=== PATIENT | male | born 1980 ===

== ENCOUNTER 2021-08-27 12:33 | Outpatient (REF) | payer OTHER, SELFPAY ==
[2021-08-27 13:06] LABS: Binax Internal Control QC Valid; Binax Now Covid-19 Ag Positive (Negative)
== END 2021-08-27 12:34 | disposition home or self-care (01) ==
LOC: HO.LAB 12:33
PROVIDERS: Visit Provider Internal Medicine
DX: Z13.89 Encounter for screening for other disorder (principal)

== ENCOUNTER 2021-10-25 16:54 | Outpatient (REF) | payer OTHER, SELFPAY ==
[2021-10-25 17:04] LABS: MANUAL DIFF FLAG NO
[2021-10-25 17:53] LABS: Basophils Percent Auto 0.4 % (0-2); Eosinophils Absolute Auto 0.2 X10*3/uL (0.0-0.4); Eosinophils Percent Auto 2.4 % (0-4); Hemoglobin 15.2 g/dl (14.0-18.0); Imm Gran Abs Auto 0.02 X10*3/uL (0.00-0.03); Imm Gran Pct Auto 0.2 % (0.0-0.4); Lymphocytes Absolute Auto 2.4 X10*3/uL (1.2-4.9); Lymphocytes Percent Auto 26.3 % (20-40); Mean Corpuscular Hemoglobin 32.1 pg (27.0-33.0); Mean Corpuscular Volume 97.3 fL (80.0-98.0); Mean Platelet Volume 10.2 fL (9.4-12.4); Monocytes Absolute Auto 0.8 X10*3/uL (0.1-1.2); Monocytes Percent Auto 8.9 % (2-11); Neutrophils Absolute Auto 5.6 x10*3/uL (2.0-8.3); Neutrophils Percent Auto 61.8 % (45-73); Platelet Count 281 X10*3/uL (160-400); Red Blood Count 4.73 X10*6/uL (4.60-5.80); Red Cell Distribution Width 13.8 % (11.0-16.0)
[2021-10-25 18:18] LABS: Alanine Aminotransferase 28 U/L (0-40); Albumin Level 4.4 g/dL (3.5-5.0); Alkaline Phosphatase 85 U/L (39-117); Anion Gap 10 (12-20); Aspartate Amino Transferase 30 U/L (5-37); Bilirubin Total 0.5 mg/dL (0.0-1.0); Blood Urea Nitrogen 12 mg/dL (9-16); Carbon Dioxide 30 mmol/L (22-29); Chloride 107 mmol/L (96-108); Cholesterol 205 mg/dL; Estimated Glomerular Filt Rate > 60; Glucose Fasting 74 mg/dL (60-99); HDL Cholesterol 59 mg/dL; LDL Cholesterol Calculated 115 mg/dl; Potassium 4.3 mmol/L (3.3-5.1); Sodium 143 mmol/L (135-145); Total Protein 7.4 g/dL (6.5-8.0); Triglycerides 157 mg/dL
== END 2021-10-25 16:55 | disposition home or self-care (01) ==
LOC: HO.LAB 16:54
PROVIDERS: PCP Internal Medicine Medical Oncology; Visit Provider Internal Medicine Medical Oncology
DX: Z00.00 Encounter for general adult medical examination without abnormal findings (principal); E66.3 Overweight
CPT/HCPCS: 36415; 80053; 80061; 85025

== ENCOUNTER 2021-12-16 12:39 | Emergency (ER) | payer OTHER, SELFPAY ==
--- NOTE | ~2021-12-16 | XR_ITS ---
EXAMINATION: XR KNEE, RIGHT CLINICAL INFORMATION: Right knee pain and swelling COMPARISON: None TECHNIQUE: Four views of the right knee. FINDINGS: Normal alignment with no fracture. No significant joint space narrowing. There is a moderate joint effusion. No radiopaque foreign body. XR/XR knee RT 3V IMPRESSION: Moderate joint effusion. No fracture.
[2021-12-16 13:01] VITALS: BP 106/72; PULSE 95; RESP 16; TEMP 36.8; O2SAT 99; BMI 25.6
[2021-12-16] MEDS: Ketorolac Tromethamine 60 MG/2 ML VIAL IM (13:34)
--- NOTE | 2021-12-16 13:58 | ED.LOWEXIN ---
HPI - Extremity Injury (Lower) General Chief Complaint: Extremity Injury, Lower Stated Complaint: r leg knee swollen fell Time Seen by Provider: 12/16/21 13:25 Source: patient and family Mode of arrival: wheelchair Limitations: no limitations History of Present Illness HPI Narrative: 41-year-old male previously healthy here with reports of right knee pain after twisting injury which occurred yesterday while working. Patient denies any fall to the ground. Patient denies any associated numbness, tingling, weakness, redness, warmth or fever. Patient does report that he has previous twitching injury to this knee before Related Data Previous Rx's Medication Instructions Recorded ibuprofen 600 mg tablet 600 mg PO Q8H PRN #20 tab 12/16/21 Allergies Allergy/AdvReac Type Severity Reaction Status Date / Time No Known Allergies Allergy Verified 12/16/21 13:05 Review of Systems Review of Systems: Yes all other systems are reviewed and are negative Constitutional: Constitutional: Reports no additional constitutional complaints, Denies body ache(s), Denies chills, Denies fever(s), Denies headache(s) and Denies weakness Eyes: Eyes: Reports no additional eye complaints and Denies change in vision ENT: Reports system reviewed and no additional complaints, except as documented, Denies dizziness, Denies headache(s), Denies nasal congestion, Denies nasal discharge and Denies neck pain Cardiovascular: Cardiovascular: Reports no additional cardiovascular complaints, Denies chest pain, Denies leg edema and Denies dyspnea Respiratory: Respiratory: Reports no additional respiratory complaints, Denies cough and Denies dyspnea Gastrointestinal: Gastrointestinal: Reports no additional gastrointestinal complaints, Denies abdominal pain, Denies diarrhea, Denies nausea and Denies vomiting Genitourinary: Genitourinary: Denies urinary incontinence Musculoskeletal: Musculoskeletal: Reports no additional musculoskeletal complaints, Denies back pain, Reports arthralgias, Reports joint swelling, Denies neck pain, Denies numbness and Denies tingling Integumentary/Breasts: Skin/Breast: Reports system reviewed and no additional complaints, except as docu and Denies rash Neurologic: Reports system reviewed and no additional complaints, except as documented, Denies Abnormal speech present, Denies dizziness, Denies headache(s), Denies numbness, Denies tingling and Denies weakness [facility] Past Medical History Attestation statement: The following information was validated with the patient. Source: old records reviewed and nursing notes reviewed Social History Social History Advance Directives: No Advance Directives Information Provided: No Physical Exam Vital Signs: Vital Signs: Last Vital Signs Temp 98.2 F 12/16/21 13:01 Pulse 95 12/16/21 13:01 Resp 16 12/16/21 13:01 BP 106/72 12/16/21 13:01 Pulse Ox 99 12/16/21 13:01 BMI result Body Mass Index 25.6 Const: General: cooperative, healthy appearing, comfortable and no acute distress Orientation/consciousness: patient oriented x3 Limitations: no limitations HEENT: Head: Yes normal to inspection Ears: hearing grossly normal bilaterally General nose exam: Normal external nose present Face and sinus: Yes normal facial exam Mouth: Normal oral and palatal mucosa present Throat: Yes posterior oropharynx normal Eyes: General: appearance normal, both eyes and all related structures Pupils: Equal, round and reactive pupils present Neck: Neck: Yes normal visual inspection Chest: Chest palpation & inspection: normal inspection of the chest Resp: Effort & Inspection: normal respiratory effort Auscultation: clear to auscultation bilaterally Cardio: Rate: regular rate Rhythm: regular rhythm Peripheral pulses: Peripheral pulses 2+ throughout GI: Inspection: Yes normal to inspection Palpation (GI): Soft to palpation and nontender Auscultation: normal bowel sounds Back/Spine/Pelvis: Thoracic/Lumbar Spine: thoracic and lumbar spine normal to inspection Skin: General skin exam: no rashes or lesions noted Neuro: General: patient oriented x3, no focal motor deficits and normal sensation to monofilament Cranial nerves: Yes Equal, round and reactive pupils present Cognition (Neuro): normal cognition Speech: No Abnormal speech present Gait exam (Neuro): Normal gait present Motor exam (neuro): 5/5 motor strength present throughout Extrem: Other: There is tenderness, swelling to the medial aspect of the right knee over the joint line and medial ligament. There is limited range of motion due to pain and swelling. General: Yes normal to inspection Course Course Course Narrative: 41-year-old male here with right knee pain after a twisting injury which occurred yesterday. Will check x-rays, provide analgesia Reevaluation(s) Reevaluation #1: X-ray show no bony abnormality. There is a moderate joint effusion. Likely sprain of the medial ligament. Patient will be placed in knee immobilizer and given crutches. Follow-up with orthopedics in 1 week for persistent symptoms. Reviewed rice. Reviewed worrisome signs and symptoms of when to return to the emergency department. Comfortable discharge home. Time: 14:30 MDM - Extremity Injury (Lower) MDM Narrative Medical decision making narrative: Sprain, contusion, fracture Medical Records Attestation: I reviewed the patient's medical records. Lab Data Attestation: I reviewed the patient's lab results. Imaging Data knee xray: Attestation: I personally reviewed and interpreted this imaging study as follows: Radiologist's impression: [address] [address] XRay Report Signed Patient: Sloan Kirkpatrick MR#: [id number] : 1980 Acct:[id number] Age/Sex: 41 / M ADM Date: 12/16/21 Loc: .ED Attending Dr: Ordering Physician: Kate Padgett DO Date of Service: 12/16/21 Procedure(s): XR knee RT 3V Accession Number(s): [id number] cc: Kate Padgett DO~ EXAMINATION: XR KNEE, RIGHT? CLINICAL INFORMATION: Right knee pain and swelling? COMPARISON: None? TECHNIQUE: Four views of the right knee. FINDINGS: Normal alignment with no fracture. No significant joint space narrowing. There is a moderate joint effusion. No radiopaque foreign body.? XR/XR knee RT 3V IMPRESSION: Moderate joint effusion. No fracture. Procedures Procedure Narrative Procedure Narrative: Knee immobilizer and crutches Discharge Plan Discharge Clinical Impression: Right knee sprain Patient Disposition: Home, Self-Care Instructions: Knee Sprain (DC) Additional Instructions: Rest, ice Use the knee immobilizer and crutches and limit weight-bearing for few days Follow-up with orthopedics in 7 days for persistent symptoms Prescriptions: New ibuprofen 600 mg tablet 600 mg PO Q8H PRN (Reason: pain) Qty: 20 0RF [place] [facility] [place] [facility] [place] [facility] [facility] [place] Group] - 1 week (for persistent symptoms )
== END 2021-12-16 14:27 | disposition home or self-care (01) ==
PROVIDERS: Emergency Provider Emergency Medicine; PCP Internal Medicine Medical Oncology
DX: M25.561 Pain in right knee (principal); R60.0 Localized edema
CPT/HCPCS: 73562; 96372; 99283; 99284; J1885

== ENCOUNTER 2022-02-07 12:29 | Outpatient (REF) | payer OTHER, SELFPAY | END 2022-02-07 12:30 | disposition home or self-care (01) | LOC: HO.HOSX 12:29 | PROVIDERS: Visit Provider Physician Assistant | DX: Z13.89 Encounter for screening for other disorder (principal) ==

== ENCOUNTER 2022-10-28 09:53 | Outpatient (REF) | payer OTHER, SELFPAY ==
[2022-10-28 10:04] LABS: MANUAL DIFF FLAG NO
[2022-10-28 10:29] LABS: Basophils Absolute Auto 0.1 X10*3/uL (0.0-0.2); Basophils Percent Auto 0.6 % (0-2); Eosinophils Absolute Auto 0.3 X10*3/uL (0.0-0.4); Eosinophils Percent Auto 3.3 % (0-4); Hematocrit 42.3 % (42.0-52.0); Imm Gran Abs Auto 0.03 X10*3/uL (0.00-0.03); Imm Gran Pct Auto 0.3 % (0.0-0.4); Lymphocytes Absolute Auto 2.7 X10*3/uL (1.2-4.9); Lymphocytes Percent Auto 31.1 % (20-40); Mean Corpuscular HGB Conc 33.1 g/dl (31.0-36.0); Mean Corpuscular Volume 93.8 fL (80.0-98.0); Mean Platelet Volume 9.8 fL (9.4-12.4); Monocytes Percent Auto 11.5 % (2-11); Neutrophils Absolute Auto 4.6 x10*3/uL (2.0-8.3); Neutrophils Percent Auto 53.2 % (45-73); Platelet Count 260 X10*3/uL (160-400); Red Blood Count 4.51 X10*6/uL (4.60-5.80); Red Cell Distribution Width 13.7 % (11.0-16.0); White Blood Count 8.7 X10*3/uL (4.8-10.8)
[2022-10-28 11:01] LABS: Alanine Aminotransferase 23 U/L (0-40); Alkaline Phosphatase 82 U/L (39-117); Anion Gap 10 (12-20); Aspartate Amino Transferase 25 U/L (5-37); Blood Urea Nitrogen 11 mg/dL (9-16); Calcium 9.2 mg/dL (8.4-10.2); Carbon Dioxide 30 mmol/L (22-29); Chloride 104 mmol/L (96-108); Cholesterol 186 mg/dL; Estimated Glomerular Filt Rate > 60; Glucose Fasting 89 mg/dL (60-99); HDL Cholesterol 44 mg/dL; LDL Cholesterol Calculated 116 mg/dl; Potassium 4.1 mmol/L (3.3-5.1); Sodium 140 mmol/L (135-145); Total Protein 6.4 g/dL (6.5-8.0); Triglycerides 133 mg/dL
[2022-10-28 11:16] LABS: Prostate Specific Antigen 0.25 ng/mL (<0.05-4.0)
== END 2022-10-28 09:54 | disposition home or self-care (01) ==
LOC: HO.LAB 09:53
PROVIDERS: PCP Internal Medicine Medical Oncology; Visit Provider Internal Medicine Medical Oncology
DX: Z13.89 Encounter for screening for other disorder (principal)
CPT/HCPCS: 36415; 80053; 80061; 84153; 85025

== ENCOUNTER 2023-07-11 14:32 | Outpatient (REF) | payer OTHER, SELFPAY ==
--- NOTE | ~2023-07-11 | XR_ITS ---
EXAMINATION: XR CHEST CLINICAL INFORMATION: Cough and chest pain COMPARISON: None available. TECHNIQUE: 2 views of the chest were obtained. FINDINGS: No significant abnormality is noted involving the heart, lungs, mediastinum, bony thorax or soft tissues. XR/XR chest 2V IMPRESSION: Unremarkable examination.
== END 2023-07-11 14:33 | disposition home or self-care (01) ==
LOC: HO.XRAY 14:32
PROVIDERS: Visit Provider Internal Medicine Medical Oncology
DX: R07.9 Chest pain, unspecified (principal); R05.9 Cough, unspecified
CPT/HCPCS: 71046

== ENCOUNTER 2023-08-18 16:59 | Emergency (ER) | payer OTHER, SELFPAY ==
--- NOTE | ~2023-08-18 | XR_ITS ---
Examination: Left elbow and left tibia and fibula. Clinical indications: Vaginal bite. COMPARISON: None. TECHNIQUE: Left tibia and fibula 2 views. Left elbow 3 views. FINDINGS: LEFT TIBIA AND FIBULA: There is soft tissue gas in medial and lateral proximal end mid lower leg from animal bite. There is no ulceration, radiopaque foreign body seen. No bony fracture.. LEFT ELBOW: No acute fracture, dislocation or subluxation. No soft tissue abnormality. No joint effusion. XR/XR elbow LT min 3V IMPRESSION: Dispersed soft tissue gas along lateral and medial proximal and mid lower leg. No radiopaque foreign body or bony abnormality seen.
--- NOTE | ~2023-08-18 | XR_ITS ---
Examination: Left elbow and left tibia and fibula. Clinical indications: Vaginal bite. COMPARISON: None. TECHNIQUE: Left tibia and fibula 2 views. Left elbow 3 views. FINDINGS: LEFT TIBIA AND FIBULA: There is soft tissue gas in medial and lateral proximal end mid lower leg from animal bite. There is no ulceration, radiopaque foreign body seen. No bony fracture.. LEFT ELBOW: No acute fracture, dislocation or subluxation. No soft tissue abnormality. No joint effusion. XR/XR tibia fibula LT 2V IMPRESSION: Dispersed soft tissue gas along lateral and medial proximal and mid lower leg. No radiopaque foreign body or bony abnormality seen.
[2023-08-18 17:31] VITALS: BP 123/73; PULSE 85; RESP 18; TEMP 36.8; O2SAT 98; BMI 21.9
--- NOTE | 2023-08-18 17:42 | ED.ANIMALBIT ---
HPI - Animal Bite General Chief Complaint: Animal Bite Stated Complaint: Dog bite to L leg Time Seen by Provider: 08/18/23 17:35 Source: patient, RN notes reviewed and old records reviewed Mode of arrival: wheelchair History of Present Illness HPI narrative: 43-year-old male with no significant past medical history presenting to the ED complaining of abrasions to left elbow and lacerations to left lower leg s/p being attacked by a Pitbull while walking in [place] 2 hours [employer]. Unknown dog or vaccinations status. Patient's last tetanus is unknown. Admits fell to ground, denies head trauma or LOC. Denies taking anticoagulation. Denies chest pain, abdominal pain, fever MD complaint: animal bite Onset (ago): hour(s) Related Data Previous Rx's Medication Instructions Recorded ibuprofen 600 mg tablet 600 mg PO Q8H PRN pain #20 tabs 12/16/21 acetaminophen 500 mg tablet 500 mg PO Q6H PRN fever or pain 08/18/23 (Tylenol Extra Strength) #14 tabs amoxicillin 875 mg-potassium 1 tab PO BID 7 days #14 tabs 08/18/23 clavulanate 125 mg tablet ibuprofen 600 mg tablet 600 mg PO Q8H PRN fever or pain 08/18/23 #14 tabs Allergies Allergy/AdvReac Type Severity Reaction Status Date / Time No Known Allergies Allergy Verified 08/18/23 17:34 Review of Systems Review of Systems: Constitutional: No Fever, No Chills ENT/Mouth: No Ear Pain, No Nasal Congestion, No sore throat, No Rhinorrhea, No Swallowing Difficulty Cardiovascular: No Chest Pain, No SOB Respiratory: No Cough, No Sputum, No Wheezing Gastrointestinal: No Nausea, No Abdominal pain Genitourinary: No Dysuria, No Urinary Frequency, No Hematuria, No Flank Pain Musculoskeletal: + joint pain, No Myalgias, + Joint Swelling Skin: + Skin Lesions, No rash Neuro: No Weakness, No Numbness, No Paresthesias, No head trauma, No LOC Yes all other systems are reviewed and are negative Constitutional: Constitutional: Reports as per [facility] Past Medical History Attestation statement: The following information was validated with the patient. Source: old records reviewed Onset Date is defined in the Problem List Problems that require an onset date and time if occurred within 24 hrs of arrival to the ED Aortic Dissection and Rupture; Neurologic impairment; Cardiopulmonary Arrest; Endotracheal Intubation; Insertion or Replacement of Mechanical Circulatory Assist Device Social History Social History Advance Directives: No Advance Directives Information Provided: No Physical Exam ED Vital Signs: Vital Signs - 24 hr 08/18/23 17:31 Temperature 98.2 F Pulse Rate 85 Respiratory Rate 18 Blood Pressure 123/73 Pulse Oximetry 98 Oxygen Delivery Method Room Air BMI result Body Mass Index 21.9 Const General: cooperative, healthy appearing and no acute distress Orientation/consciousness: patient oriented x3 Limitations: no limitations HENMT Head: Yes normal to inspection and Yes atraumatic Ears: hearing grossly normal bilaterally General nose exam: Normal external nose present Face and sinus: Yes normal facial exam Eyes General: appearance normal, both eyes and all related structures EOM: EOMs intact bilaterally Neck Neck: Yes normal visual inspection and Yes no meningeal signs Resp Effort & Inspection: normal respiratory effort and no respiratory distress Cardio Rate: regular rate Skin Other: Please refer to images above. Left elbow with noted superficial abrasions/erythema. Nontender. Full range of motion intact. Left lower extremity with multiple lacerations as depicted, largest to anterior almendarez, smaller laceration just distal & medial Knee nontender. Ecchymosis noted to left tib/fib. Neurovascular intact distally Rashes: no rashes Neuro General: patient oriented x3, tone normal and no meningeal signs Cranial nerves: Yes CN's II-XII intact bilaterally Gait exam (Neuro): Normal gait present Extrem General: Yes normal to inspection Course Course Course Narrative: -Closely approximated bite wounds with a total of 7 sutures -1850--ED care transferred to SABIHA Chang pending XR results and dispo Reevaluation(s) Reevaluation #1: X-ray obtained and revealed FINDINGS: LEFT TIBIA AND FIBULA: There is soft tissue gas in medial and lateral proximal end mid lower leg from animal bite. There is no ulceration, radiopaque foreign body seen. No bony fracture.. LEFT ELBOW: No acute fracture, dislocation or subluxation. No soft tissue abnormality. No joint effusion. XR/XR tibia fibula LT 2V IMPRESSION: Dispersed soft tissue gas along lateral and medial proximal and mid lower leg. No radiopaque foreign body or bony abnormality seen. This is most likely related to the actual dog bite that he had. No foreign bodies. Patient now status post suture. Patient tolerated procedure well. Patient will be discharged with symptomatic treatment Augmentin. Along with instructions return for suture removal. Patient with family at bedside understand agree this plan. Time: 19:32 Medications Administered Discontinued Medications Generic Name Dose Route Start Last Admin Trade Name Freq PRN Reason Stop Dose Admin Amoxicillin/Clavulanate Potassium 875 mg 08/18/23 17:42 08/18/23 18:56 Amoxicillin/Potassium Clav 875 Mg Tablet PO 08/18/23 17:43 875 mg ONCE ONE Administration Bacitracin 1 appl 08/18/23 18:38 08/18/23 18:58 Bacitracin Oint 0.9 Gm Packet TOPICAL 08/18/23 18:39 1 appl ONCE ONE Administration Protocol Diphtheria/Tetanus/Acell Pertussis 0.5 ml 08/18/23 17:42 08/18/23 18:56 Diphth,Pertus(Acell),Tet Adult 0.5 Ml Syringe IM 08/18/23 17:43 0.5 ml .ONCE ONE Administration Ibuprofen 800 mg 08/18/23 18:02 08/18/23 19:00 Ibuprofen 800 Mg Tablet PO 08/18/23 18:03 800 mg ONCE ONE Administration Lidocaine/Epinephrine 10 ml 08/18/23 17:42 08/18/23 18:57 Lidocaine Hcl 1%/Epi 1:100,000 10 Ml Vial INFILTRATI 08/18/23 17:43 10 ml ONCE ONE Administration Lidocaine/Epinephrine 10 ml 08/18/23 17:45 08/18/23 18:58 Lidocaine Hcl 1%/Epi 1:100,000 10 Ml Vial INFILTRATI 08/18/23 17:46 10 ml ONCE ONE Administration Rabies Immune Globulin 1,088.62 unit 08/18/23 17:42 08/18/23 18:58 Rabies Immune Globulin/Pf 900 Unit/3 Ml Vial 20 unit/kg (1088.62 unit) 08/18/23 17:43 1,088.62 unit IM Administration ONCE ONE Rabies Vaccine Human Diploid Cell 1 ml 08/18/23 17:42 08/18/23 18:57 Rabies Vaccine, Human Diploid (Imovax) 1 Ml Vial IM 08/18/23 17:43 1 ml .ONCE ONE Administration Medical Decision Making Medical Decision Making MDM Narrative: 43-year-old male with no significant past medical history presenting to the ED complaining of abrasions to left elbow and lacerations to left lower leg s/p being attacked by a Pitbull while walking in [place] 2 hours [employer]. Unknown dog or vaccinations status. On exam vital signs stable, NAD, nontoxic appearing, please refer to images above. Concern for fracture and dog bites. Patient will need tetanus, rabies vaccine and immunoglobulin and p.o. Augmentin Plan: X-rays, repair wounds >closely approximate Please refer to course for remaining clinical decision making, interpretation of labs/imaging results, and discussions with consultants and/or family members. Differential Diagnosis Differential Diagnoses: The differential diagnosis associated with the presentation includes As above Independent Interpretation I performed an independent interpretation of an: Plain X-Ray Radiology Impression Discussion of test interpretation with radiology: I have reviewed the radiologist's reading. External Record Review External record reviewed: Inpatient record, Office record, Outpatient record, Prior outpatient labs, Prior outpatient radiology, Primary care record and Outside ED record Tests considered The following testing was considered but not selected: As above Prescription Management I considered prescription management with: Pain Medication and Antibiotic Procedures Laceration Laceration 1: Site: lower extremity Side (If applicable): left Size (cm): 4 Description: linear and irregular Depth: simple, single layer Local Anesthetic: lidocaine 1% and with epi Amount of anesthesia used (mL): 4 Pre-repair: wound explored and irrigated extensively Skin layer closed with: nylon Size (cm): 4-0 Number of sutures: 5 Technique: simple, interrupted Laceration 2: Site: lower extremity Side (If applicable): left Size (cm): 1.5 Description: linear Depth: simple, single layer Local Anesthetic: lidocaine 1% and with epi Amount of anesthesia used (mL): 1 Pre-repair: wound explored and irrigated extensively Skin layer closed with: nylon Size (cm): 4-0 Number of sutures: 1 Technique: simple, interrupted Laceration 3: Site: lower extremity Side (If applicable): left Size (cm): 1 Description: linear Depth: simple, single layer Local Anesthetic: lidocaine 1% and with epi Amount of anesthesia used (mL): 1 Pre-repair: wound explored and irrigated extensively Skin layer closed with: nylon Size (cm): 4-0 Number of sutures: 1 Technique: simple, interrupted Discharge Plan Discharge Clinical Impression: Dog bite Patient Disposition: Home, Self-Care Instructions: Animal Bite (ED), Rabies (ED) Additional Instructions: DOG BITES HAVE HIGH LIKELIHOOD OF GETTING INFECTED. PLEASE KEEP A VERY CLOSE EYE ON THE AREA, KEEP DRY AND CLEAN. IF YOU DEVELOP REDNESS, INCREASING SWELLING, DRAINAGE OR FEVER RETURN TO THE ED IMMEDIATELY You were given the rabies vaccine and immunoglobulin today. You need to return on 08/21/2023, 08/28/2023 and 09/04/2023 for remaining rabies vaccines series Augmentin is an antibiotic please take as prescribed Your wounds were repaired today in the emergency department. Keep dry and clean. You need to return to any emergency department, urgent care, or your PCPs office in 7-10 days for suture removal Apply bacitracin and or Neosporin daily Once sutures are removed apply anti scar cream like Mederma If area begins look infected, is red, there is drainage, streaking, or you have fever please return to the emergency department Prescriptions: New amoxicillin-pot clavulanate 875-125 mg tablet 1 tab PO BID 7 Days Qty: 14 0RF ibuprofen 600 mg tablet 600 mg PO Q8H PRN (Reason: fever or pain) Qty: 14 0RF acetaminophen [Tylenol Extra Strength] 500 mg tablet 500 mg PO Q6H PRN (Reason: fever or pain) Qty: 14 0RF No Action ibuprofen 600 mg tablet 600 mg PO Q8H PRN (Reason: pain) Qty: 20 0RF Referrals: [facility] [place] [facility] [Provider Group] Yogi Akhtar MD [Primary Care Provider] - 1 week
[2023-08-18 18:00] VITALS: BP 130/78; PULSE 80; RESP 17; O2SAT 95
[2023-08-18] MEDS: Amoxicillin/Potassium Clav 875 MG TABLET PO (18:56)
[2023-08-18] MEDS: Diphth,Pertus(ACell),Tet Adult 0.5 ML SYRINGE IM (18:56)
[2023-08-18] MEDS: Rabies Vaccine, Human Diploid (Imovax) 1 ML VIAL IM (18:57)
[2023-08-18] MEDS: Lidocaine HCl 1%/Epi 1:100,000 10 ML VIAL INFILTRATI ×2 (18:57→18:58)
[2023-08-18] MEDS: Bacitracin Oint 0.9 GM PACKET 1 APPL TOPICAL (18:58)
[2023-08-18] MEDS: Rabies Immune Globulin/PF 900 UNIT/3 ML VIAL 1088.62 UNIT IM (18:58)
[2023-08-18] MEDS: Ibuprofen 800 MG TABLET PO (19:00)
--- NOTE | 2023-08-18 19:20 | PC.NURSE ---
pt medicated per MAR- vaccine order set faxed to [facility] [place], and pharmacy- confirmations received and filed in blue rabies binder. pending XR result. pt provided with tetanus and rabies VIS
== END 2023-08-18 19:39 | disposition home or self-care (01) ==
PROVIDERS: Emergency Provider Emergency Medicine Emergency Medical Services; PCP Internal Medicine Medical Oncology
DX: S81.812A Laceration without foreign body, left lower leg, initial encounter (principal); W54.0XXA Bitten by dog, initial encounter; Y93.01 Activity, walking, marching and hiking; Y92.480 Sidewalk as the place of occurrence of the external cause; Y99.9 Unspecified external cause status; Z20.3 Contact with and (suspected) exposure to rabies; Z23 Encounter for immunization
CPT/HCPCS: 12002; 73080; 73590; 90375; 90471; 90472; 90675; 90715; 96372; 99284

== ENCOUNTER 2023-08-21 10:38 | Outpatient (REF) | payer OTHER, SELFPAY | END 2023-08-21 10:39 | disposition home or self-care (01) | LOC: HO.MDS 10:38 | PROVIDERS: Visit Provider Physician Assistant | DX: Z20.3 Contact with and (suspected) exposure to rabies (principal); S81.852D Open bite, left lower leg, subsequent encounter; W54.0XXD Bitten by dog, subsequent encounter | CPT/HCPCS: 90471; 90675 ==

== ENCOUNTER 2023-08-28 14:29 | Outpatient (REF) | payer OTHER, SELFPAY | END 2023-08-28 14:30 | disposition home or self-care (01) | LOC: HO.MDS 14:29 | PROVIDERS: Visit Provider Physician Assistant | DX: Z20.3 Contact with and (suspected) exposure to rabies (principal); S81.852D Open bite, left lower leg, subsequent encounter; W54.0XXD Bitten by dog, subsequent encounter | CPT/HCPCS: 90471; 90675 ==

== ENCOUNTER 2023-09-04 14:07 | Outpatient (REF) | payer OTHER, SELFPAY ==
--- NOTE | ~2023-09-04 | XR_ITS ---
EXAMINATION: XR CHEST 2 VIEWS CLINICAL INFORMATION: Cough. COMPARISON: Chest radiographs dated 07/11/2023. TECHNIQUE: Frontal and lateral views of the chest were obtained. FINDINGS: The heart, great vessels, pulmonary vasculature and mediastinum are normal. The lungs show no focal infiltrate, effusion or pneumothorax. There is no acute osseous abnormality. XR/XR chest 2V IMPRESSION: No active cardiopulmonary disease.
== END 2023-09-04 14:08 | disposition home or self-care (01) ==
LOC: HO.MDS 14:07
PROVIDERS: Absent Provider Internal Medicine Medical Oncology; PCP Internal Medicine Medical Oncology; Visit Provider Physician Assistant
DX: Z20.3 Contact with and (suspected) exposure to rabies (principal); S81.852D Open bite, left lower leg, subsequent encounter; W54.0XXD Bitten by dog, subsequent encounter; R05.9 Cough, unspecified; F17.200 Nicotine dependence, unspecified, uncomplicated
CPT/HCPCS: 71046; 90471; 90675

== ENCOUNTER 2024-05-07 15:31 | Outpatient (REF) | payer OTHER, SELFPAY ==
[2024-05-07 16:04] LABS: MANUAL DIFF FLAG NO
[2024-05-07 17:04] LABS: Basophils Percent Auto 0.6 % (0-2); Eosinophils Absolute Auto 0.2 X10*3/uL (0.0-0.4); Eosinophils Percent Auto 3.2 % (0-4); Hematocrit 44.1 % (42.0-52.0); Hemoglobin 15.1 g/dl (14.0-18.0); Imm Gran Abs Auto 0.02 X10*3/uL (0.00-0.03); Imm Gran Pct Auto 0.3 % (0.0-0.4); Lymphocytes Absolute Auto 1.7 X10*3/uL (1.2-4.9); Lymphocytes Percent Auto 24.5 % (20-40); Mean Corpuscular HGB Conc 34.2 g/dl (31.0-36.0); Mean Corpuscular Hemoglobin 32.8 pg (27.0-33.0); Mean Corpuscular Volume 95.9 fL (80.0-98.0); Mean Platelet Volume 10.9 fL (9.4-12.4); Monocytes Absolute Auto 0.6 X10*3/uL (0.1-1.2); Monocytes Percent Auto 8.6 % (2-11); Neutrophils Absolute Auto 4.3 x10*3/uL (2.0-8.3); Neutrophils Percent Auto 62.8 % (45-73); Platelet Count 218 X10*3/uL (160-400); Red Cell Distribution Width 13.4 % (11.0-16.0); White Blood Count 6.8 X10*3/uL (4.8-10.8)
[2024-05-07 17:41] LABS: Alanine Aminotransferase 17 U/L (0-40); Albumin Level 4.1 g/dL (3.5-5.0); Alkaline Phosphatase 73 U/L (39-117); Anion Gap 9 (12-20); Aspartate Amino Transferase 19 U/L (5-37); Bilirubin Total 0.6 mg/dL (0.0-1.0); Blood Urea Nitrogen 10 mg/dL (9-16); Calcium 9.5 mg/dL (8.4-10.2); Carbon Dioxide 30 mmol/L (22-29); Chloride 105 mmol/L (96-108); Cholesterol 185 mg/dL (<200); Estimated Glomerular Filt Rate > 60; Glucose Random 84 mg/dL (60-115); HDL Cholesterol 45 mg/dL (>40); LDL Cholesterol Calculated 103 mg/dL (<100); Magnesium 1.9 mg/dL (1.6-2.6); Potassium 3.6 mmol/L (3.3-5.1); Sodium 140 mmol/L (135-145); Triglycerides 186 mg/dL (<150)
[2024-05-07 17:44] LABS: Prostate Specific Antigen 0.18 ng/mL (<0.05-4.0)
[2024-05-07 17:55] LABS: Free T4 (Free Thyroxine) 0.86 ng/dL (0.71-1.85); Thyroid Stimulating Hormone 1.06 uIU/mL (0.32-4.0)
[2024-05-08 04:26] LABS: Syphilis Screen Nonreactive (Nonreactive)
[2024-05-08 04:43] LABS: HIV AB/AG Nonreactive (Nonreactive); HIV Num 1 0.07 S/CO (0.00-0.99)
== END 2024-05-07 15:32 | disposition home or self-care (01) ==
LOC: HO.LAB 15:31
PROVIDERS: PCP Internal Medicine Medical Oncology; Visit Provider Internal Medicine Medical Oncology
DX: R63.4 Abnormal weight loss (principal); N40.0 Benign prostatic hyperplasia without lower urinary tract symptoms; R30.0 Dysuria; R53.83 Other fatigue
CPT/HCPCS: 36415; 80053; 80061; 83735; 84153; 84439; 84443; 85025; 86780; 87389

== ENCOUNTER 2024-09-03 09:30 | Outpatient (REF) | payer OTHER, SELFPAY ==
[2024-09-03 09:47] LABS: MANUAL DIFF FLAG NO
[2024-09-03 09:55] LABS: Basophils Percent Auto 0.4 % (0-2); Eosinophils Absolute Auto 0.3 X10*3/uL (0.0-0.4); Eosinophils Percent Auto 3.5 % (0-4); Hematocrit 41.4 % (42.0-52.0); Hemoglobin 14.1 g/dl (14.0-18.0); Imm Gran Abs Auto 0.02 X10*3/uL (0.00-0.03); Imm Gran Pct Auto 0.3 % (0.0-0.4); Lymphocytes Percent Auto 26.1 % (20-40); Mean Corpuscular HGB Conc 34.1 g/dl (31.0-36.0); Mean Corpuscular Hemoglobin 32.6 pg (27.0-33.0); Mean Corpuscular Volume 95.8 fL (80.0-98.0); Mean Platelet Volume 9.9 fL (9.4-12.4); Monocytes Percent Auto 13.5 % (2-11); Neutrophils Absolute Auto 4.2 x10*3/uL (2.0-8.3); Neutrophils Percent Auto 56.2 % (45-73); Platelet Count 223 X10*3/uL (160-400); Red Blood Count 4.32 X10*6/uL (4.60-5.80); Red Cell Distribution Width 13.5 % (11.0-16.0); White Blood Count 7.5 X10*3/uL (4.8-10.8)
[2024-09-03 10:38] LABS: Alanine Aminotransferase 27 U/L (0-40); Albumin Level 3.8 g/dL (3.5-5.0); Alkaline Phosphatase 70 U/L (39-117); Anion Gap 13 (12-20); Aspartate Amino Transferase 28 U/L (5-37); Bilirubin Total 0.4 mg/dL (0.0-1.0); Blood Urea Nitrogen 24 mg/dL (9-16); Calcium 8.5 mg/dL (8.4-10.2); Carbon Dioxide 30 mmol/L (22-29); Chloride 105 mmol/L (96-108); Cholesterol 148 mg/dL (<200); Estimated Glomerular Filt Rate > 60; Glucose Fasting 87 mg/dL (60-99); HDL Cholesterol 36 mg/dL (>40); LDL Cholesterol Calculated 89 mg/dL (<100); Potassium 3.1 mmol/L (3.3-5.1); Sodium 145 mmol/L (135-145); Total Protein 6.8 g/dL (6.5-8.0); Triglycerides 119 mg/dL (<150)
== END 2024-09-03 09:31 | disposition home or self-care (01) ==
LOC: HO.LAB 09:30
PROVIDERS: PCP Internal Medicine Medical Oncology; Visit Provider Internal Medicine Medical Oncology
DX: E66.3 Overweight (principal); R63.4 Abnormal weight loss
CPT/HCPCS: 36415; 80053; 80061; 85025

== ENCOUNTER 2024-11-21 09:34 | Outpatient (REF) | payer OTHER, SELFPAY ==
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
--- OUTSIDE RECORDS SUMMARY | 2024-11-21 10:37 | XMS_ITS ---
Author Organization Yogi Akhtar III, MD Address [address] [place] [address] [place] [address] Care Team Providers Care Stock Or Delivery Clerk Name Role Phone Yogi Akhtar Primary Care Provider [phone] REASON FOR VISIT Follow-up Social History Sex Assigned At : Social History Observation Description Sex Assigned At Male Encounters Encounter Location Date Provider Diagnosis Yogi Akhtar III, MD [address] [place] [address] [address] [place] [address] 11/13/2024 Yogi Akhtar Plan Of Treatment Next Appt Details Provider Name:Yogi Akhtar, 11/27/2024 02:00:00 PM, [address] [place] [address] [place], [address], Provider Name:Yogi Akhtar, 02/05/2025 02:00:00 PM, [address] [place] [address] [place], [address], Progress Notes * LASHON REYES DDOB:1980 (44 yo M)Acc No.[id number]:11/13/2024 Progress Notes Patient:?LASHON REYES Provider:?Yogi Akhtar MD :1980???Age:44 Y???Sex:Male Pablito e:11/13/2024 Address:[address] [facility], [address], [id number] Subjective: * Chief Complaints: * ???1. Follow-up. * Medical History:? Objective: * Vitals:? Assessment: Plan: * Treatment: * Images: * The named appointment provid er may or may not be the originator of this progress note, and it is not deemed complete until electronically signed by the appointment provider. Sign off status: Pending * Provider:?Yogi Akhtar MD Date:?10/29 Generated for Vadim thornton/Stacey/Anivalitting on:?11/21/2024 10:37 AM EDT
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
--- OUTSIDE RECORDS SUMMARY | 2024-11-21 10:37 | XMS_ITS ---
Author Organization Yogi Akhtar III, MD Address [address] [place] [address] [place] [phone] Care Team Providers Care Physician Anesthesiologist Name Role Phone Yogi Akhtar Primary Care Provider Allergies Allergen (clinical drug ingredient) Drug/Non Drug Allergy documented on EMR Reaction Allergy Type Onset Date Status No Known Drug Allergy Unknown Drug Allergy Active REASON FOR VISIT Weight loss, Tobacco dependence, Abdominal pain Medications Medication SIG (Take, Route, Fr equency, [...] User Light cigarett e smoker ((1-9 cigs/day) Vital Signs Height 62 in 11/06/2024 Weight 125 lbs 11/06/2024 BMI 22.86 kg/m2 11/06/2024 Encounters Encounter Location Date Provider Diagnosis Yogi Akhtar III, MD [address] [place] [address] [place] [id number] 11/06/2024 Yogi Akhtar Hypokalemia E87.6 ; Tobacco dependence F17.200 and History of fracture of left shoulder Z87.81 Assessments Encounter Date Diagnosis (ICD Code) Assessment Notes Treatment Notes Treatment Clinical Notes 11/06/2024 Hypokalemia (ICD-10 - E87.6) His potassium [...] it has been present for one month. 11/06/2024 History of fracture of left shoulder (ICD-10 - Z87.81) He has no pain with range of motion of left shoulder to this time and is able to use the arm and all of the activities of daily living. Plan Of Treatment Medication Medication Name Sig Start Date Stop Date Notes Ibuprofen 600 MG 1 tablet with food o r milk as needed Orally Three times a day Pending Test Test Name Order Date Electrolytes 11/06/2024 Next Appt Details Follow Up: 1 Week, Reason: O V Provider Name:Yogi Akhtar, 11/27/2024 02:00:00 PM, [address] [place] [address] [address], [place], [phone], Provider Name:Yogi Akhtar, 02/05/2025 02:00:00 PM, [address] [place] [address] [address], [place], [phone], Progress Notes * LASHON REYES DDOB:1980 (44 yo M)Acc No.[id number]:11/06/2024 Patient:?LASHON REYES Provider:?Yogi Akhtar MD :1980???Age:44 Y???Sex:Male Pablito e:11/06/2024 Address:[address] [place], [place] [address], [id number] Subjective: * Chief Complaints: * ???Weight lossTobacco depend enceAbdominal pain * HPI: ???:?He was unable to come to the office today so this was done as a telehealth visit over 15 minutes.? He says his weight has increased to 130 pounds on a home scale.? He is rising from sleep at most once a night to urinate.? He is smoking last down now to 5 cigarettes per day.? We discussed smoking cessation techniques.? He has an occasional cough.? In general he is feeling better.? His appetite is good and he has no fever or chills. ?Telehealth?Location of provider rendering services:?{...} [address] [place] [address] ?Location of patient:?address listed in demographics for today's visit ?Patient identification confirmed using:?Name, ?Telehealth method:?Telephone only. Patient not visible to care provider. ?Consent:?Patient verbally consented to treatment, Patient verbally consented to billing insurance company, Patient informed of any privacy concerns related to method of visit ?Total time spent with patient (mins)?15 * ROS:?General/Constitutional:?pain?Shoulders knees and ankles.?Chills?denies.?Fatigue?admits.?Fever?denies.?ENT:?Decreased hearing?denies.?Respiratory:?Cough?non-productive.?Cardiovascular:?Chest pain with exertion?denies.?Dyspnea on exertion?denies.?Shortness of breath?denies.?Gastrointestinal:?Constipation?occasional.?Decreased appetite?denies.?Diarrhea?denies.?Heartburn?denies.?Nausea?denies.?Rectal bleeding?denies.?Vomiting?denies.?Hematology:?bruising?denies.?petechiae?denies.?Swollen glands?none have been noted.?Genitourinary:?Frequent urination?once a night.?Musculoskeletal:?Muscle aches?denies.?Painful joints?denies.?Sciatica?denies.?Weakness?denies.?Skin:?Itching?denies.?Rash?denies.?Skin lesion(s)?denies.?Neurologic:?Difficulty speaking?denies.?Dizziness?denies.?Headache?denies.?Low back pain?denies.?Psychiatric:?Depressed mood?denies.? * Medical History:? * Surgical History:?dental ext ractions 2018No history * Hospitalization/Major Diagno stic Procedure:?No history * Family History:?Father: kylah cohen 50 yrs, [...] smoker ((1-9 cigs/day) ???He was born in [facility]. He is single but has 5 children who are healthy and well. He has a significant other, Tammy who is also healthy and well. He smokes 10 cigarettes a day. He does not use alcohol or illegal drugs. He is currently unemployed Smoking - Excessive, Drinking - Excessive. * Medications:?TakingIbuprofen 600 MG Tablet 1 tablet with food or milk as needed Orally Three times a day Medication List reviewed and reconciled with the patientTaking Ibuprofen 600 MG Tablet 1 tablet with food or milk as needed Orally Three times a day Medication List reviewed and reconciled with the patient * Allergies:?No Known Drug All ergyno[Allergies Verified] Objective: * Vitals:?Ht: 62, Wt: 125, BMI :22.86, Wt-k.7. * ???Past Orders: Lab:Complete Blood Count Aut o Diff * Collection Date 09/03/2024 05/07/2024 10/28/2022 Collection Time 09:43 AM 03:55 PM 10:02 AM Order Date 09/03/2024 05/07/2024 10/28/2022 White Blood Count 7.5 (Ref Range: 4.8-10.8 X10*3/uL) 6.8 (Ref Range: 4.8-10.8 X10*3/uL) 8.7 (Ref Range: 4.8-10.8 X10*3/uL) Red Blood Count 4.32?L (Ref Range: 4.60-5.80 X10*6/uL) 4.60 (Ref Range: 4.60-5.80 X10*6/uL) 4.51?L (Ref Range: 4.60-5.80 X10*6/uL) Hemoglobin 14.1 (Ref Range: 14.0-18.0 g/dl) 15.1 (Ref Range: 14.0-18.0 g/dl) 14.0 (Ref Range: 14.0-18.0 g/dl) Hematocrit 41.4?L (Ref Range: 42.0-52.0 %) 44.1 (Ref Range: 42.0-52.0 %) 42.3 (Ref Range: 42.0-52.0 %) Mean Corpuscular Volume 95.8 (Ref Range: 80.0-98.0 fL) 95.9 (Ref Range: 80.0-98.0 fL) 93.8 (Ref Range: 80.0-98.0 fL) Mean Corpuscular Hemoglobin 32.6 (Ref Range: 27.0-33.0 pg) 32.8 (Ref Range: 27.0-33.0 pg) 31.0 (Ref Range: 27.0-33.0 pg) Mean Corpuscular HGB Conc 34.1 (Ref Range: 31.0-36.0 g/dl) 34.2 (Ref Range: 31.0-36.0 g/dl) 33.1 (Ref Range: 31.0-36.0 g/dl) Red Cell Distribution Width 13.5 (Ref Range: 11.0-16.0 %) 13.4 (Ref Range: 11.0-16.0 %) 13.7 (Ref Range: 11.0-16.0 %) Platelet Count 223 (Ref Range: 160-400 X10*3/uL) 218 (Ref Range: 160-400 X10*3/uL) 260 (Ref Range: 160-400 X10*3/uL) Mean Platelet Volume 9.9 (Ref Range: 9.4-12.4 fL) 10.9 (Ref Range: 9.4-12.4 fL) 9.8 (Ref Range: 9.4-12.4 fL) Neutrophils Percent Auto 56.2 (Ref Range: 45-73 %) 62.8 (Ref Range: 45-73 %) 53.2 (Ref Range: 45-73 %) Imm Gran Pct Auto 0.3 (Ref Range: 0.0-0.4 %) 0.3 (Ref Range: 0.0-0.4 %) 0.3 (Ref Range: 0.0-0.4 %) Lymphocytes Percent Auto 26.1 (Ref Range: 20-40 %) 24.5 (Ref Range: 20-40 %) 31.1 (Ref Range: 20-40 %) Monocytes Percent Auto 13.5?H (Ref Range: 2-11 %) 8.6 (Ref Range: 2-11 %) 11.5?H (Ref Range: 2-11 %) Eosinophils Percent Auto 3.5 (Ref Range: 0-4 %) 3.2 (Ref Range: 0-4 %) 3.3 (Ref Range: 0-4 %) Basophils Percent Auto 0.4 (Ref Range: 0-2 %) 0.6 (Ref Range: 0-2 %) 0.6 (Ref Range: 0-2 %) NRBC Pct Auto 0.0 (Ref Range: 0.0-0.2 /100WBC) 0.0 (Ref Range: 0.0-0.2 /100WBC) 0.0 (Ref Range: 0.0-0.2 /100WBC) Neutrophils Absolute Auto 4.2 (Ref Range: 2.0-8.3 x10*3/uL) 4.3 (Ref Range: 2.0-8.3 x10*3/uL) 4.6 (Ref Range: 2.0-8.3 x10*3/uL) Imm Gran Abs Auto 0.02 (Ref Range: 0.00-0.03 X10*3/uL) 0.02 (Ref Range: 0.00-0.03 X10*3/uL) 0.03 (Ref Range: 0.00-0.03 X10*3/uL) Lymphocytes Absolute Auto 2.0 (Ref Range: 1.2-4.9 X10*3/uL) 1.7 (Ref Range: 1.2-4.9 X10*3/uL) 2.7 (Ref Range: 1.2-4.9 X10*3/uL) Monocytes Absolute Auto 1.0 (Ref Range: 0.1-1.2 X10*3/uL) 0.6 (Ref Range: 0.1-1.2 X10*3/uL) 1.0 (Ref Range: 0.1-1.2 X10*3/uL) Eosinophils Absolute Auto 0.3 (Ref Range: 0.0-0.4 X10*3/uL) 0.2 (Ref Range: 0.0-0.4 X10*3/uL) 0.3 (Ref Range: 0.0-0.4 X10*3/uL) Basophils Absolute Auto 0.0 (Ref Range: 0.0-0.2 X10*3/uL) 0.0 (Ref Range: 0.0-0.2 X10*3/uL) 0.1 (Ref Range: 0.0-0.2 X10*3/uL) NRBC Abs Auto 0.000 (Ref Range: 0.0-0.012 X10*3/uL) 0.000 (Ref Range: 0.0-0.012 X10*3/uL) 0.000 (Ref Range: 0.0-0.012 X10*3/uL) * Lab:[facility] * Collection Date 09/03/2024 10/28/2022 10/25/2021 Collection Time 09:43 AM 10:02 AM 05:03 PM Order Date 09/03/2024 10/28/2022 10/25/2021 Sodium 145 (Ref Range: 135-145 mmol/L) 140 (Ref Range: 135-145 mmol/L) 143 (Ref Range: 135-145 mmol/L) Bilirubin Total 0.4 (Ref Range: 0.0-1.0 mg/dL) 1.0 (Ref Range: 0.0-1.0 mg/dL) 0.5 (Ref Range: 0.0-1.0 mg/dL) Aspartate Amino Transferase 28 (Ref Range: 5-37 U/L) 25 (Ref Range: 5-37 U/L) 30 (Ref Range: 5-37 U/L) Alanine Aminotransferase 27 (Ref Range: 0-40 U/L) 23 (Ref Range: 0-40 U/L) 28 (Ref Range: 0-40 U/L) Total Protein 6.8 (Ref Range: 6.5-8.0 g/dL) 6.4?L (Ref Range: 6.5-8.0 g/dL) 7.4 (Ref Range: 6.5-8.0 g/dL) Albumin Level 3.8 (Ref Range: 3.5-5.0 g/dL) 4.0 (Ref Range: 3.5-5.0 g/dL) 4.4 (Ref Range: 3.5-5.0 g/dL) Alkaline Phosphatase 70 (Ref Range: 39-117 U/L) 82 (Ref Range: 39-117 U/L) 85 (Ref Range: 39-117 U/L) Potassium 3.1?L (Ref Range: 3.3-5.1 mmol/L) 4.1 (Ref Range: 3.3-5.1 mmol/L) 4.3 (Ref Range: 3.3-5.1 mmol/L) Chloride 105 (Ref Range: 96-108 mmol/L) 104 (Ref Range: 96-108 mmol/L) 107 (Ref Range: 96-108 mmol/L) Carbon Dioxide 30?H (Ref Range: 22-29 mmol/L) 30?H (Ref Range: 22-29 mmol/L) 30?H (Ref Range: 22-29 mmol/L) Anion Gap 13 (Ref Range: 12-20) 10?L (Ref Range: 12-20) 10?L (Ref Range: 12-20) Blood Urea Nitrogen 24?H (Ref Range: 9-16 mg/dL) 11 (Ref Range: 9-16 mg/dL) 12 (Ref Range: 9-16 mg/dL) Creatinine 0.80 (Ref Range: 0.5-1.4 mg/dL) 0.84 (Ref Range: 0.5-1.4 mg/dL) 0.83 (Ref Range: 0.5-1.4 mg/dL) Estimated Glomerular Filt Rate > 60 > 60 > 60 Glucose Fasting 87 (Ref Range: 60-99 mg/dL) 89 (Ref Range: 60-99 mg/dL) 74 (Ref Range: 60-99 mg/dL) Calcium 8.5 (Ref Range: 8.4-10.2 mg/dL) 9.2 (Ref Range: 8.4-10.2 mg/dL) 10.0 (Ref Range: 8.4-10.2 mg/dL) * Lab:Lipid Panel * Collection Date 09/03/2024 05/07/2024 10/28/2022 Collection Time 09:43 AM 03:55 PM 10:02 AM Order Date 09/03/2024 05/07/2024 10/28/2022 Triglycerides 119 (Ref Range: <150 mg/dL) 186?H (Ref Range: <150 mg/dL) 133 (Ref Range: mg/dL) Cholesterol 148 (Ref Range: <200 mg/dL) 185 (Ref Range: <200 mg/dL) 186 (Ref Range: mg/dL) LDL Cholesterol Calculated 89 (Ref Range: <100 mg/dL) 103?H (Ref Range: <100 mg/dL) 116 (Ref Range: mg/dl) HDL Cholesterol 36?L (Ref Range: >40 mg/dL) 45 (Ref Range: >40 mg/dL) 44 (Ref Range: mg/dL) Clinical Info: URINE TO BE TEST ED FOR CHLAMYDIA AND GONORRHOEAE PLEASE FAX COMPLETED RESULTS TO [phone],Please have this labwork done today Assessment: * Assessment: 1.?Hypokalemia - E87.6 (Prim brisa)???Notes :His potassium level was 3.1 in the first week of August.? I notified him of this recommended he drink copious amounts orange juice and come to the office to be retested.? He says that he drank the orange juice as requested for 2 weeks.? However he did not come to the office or have repeat blood work done.? He does not wish to have bloood work done today because he says he feels very well and is gaining weight and his appetite is good.? He denies any weakness or feelings of being washed out.I gave him the office telephone number and I gave? him the answering service number???2.?Tobacco dependence - F17.200???Notes :He was counseled about smoking cigarettes. He consumes 4 cigarettes per day. He has a chronic cough about which his is concerned. She says it has been present for one month.???3.?History of fracture of left shoulder - Z87.81???Notes :He has no pain with range of motion of left shoulder to this time and is able to use the arm and all of the activities of daily living.??? Plan: * Treatment: * Labs:? * ?Lab: Electrolytes * Procedure Codes:?39327 SYNCH AUDIO-ONLY EST SF 10 * Preventive Medicine:? ??Counseling:?Smoking/Tobacco Use?Patient counseled on the dangers of tobacco use and urged to quit.?11/06/2024 ?Patient Lifestyle Goals?Patient wants to quit ?Treatment Goals?Set a quit date, Cut down by 1 cigarette a week ?Barriers?Stress, Social smoker ?Self-Management Plan?Make a plan to cut down number of cigarettes over time and set a date to work towards quitting * Follow Up:?1 Week (Reason: O V) * Images: * Sign off status: Completed true * Provider:?Yogi Akhtar MD Date:?03/2025 Generated for Rayi hillary/Stacey/eTransmitting on:?11/21/2024 10:37 AM EDT History and Physical Notes * HPI (History of Present Illness) Category Sub-Category Detail Notes Telehealth Location of [facility] rendering services:: {...} [address] [place] [id number] Location of patient:: address listed in demographics for today's visit Patient identification confirmed using:: Name, Telehealth method:: Telephone only. Lety ent not visible to care provider. Consent:: Patient verbally c onsented to treatment, Patient verbally consented to billing insurance company, Patient informed of any privacy concerns related to method of visit Total time spent with patient (mins): 15
[2024-11-21 11:12] LABS: Anion Gap 12 (12-20); Carbon Dioxide 28 mmol/L (22-29); Chloride 104 mmol/L (96-108); Potassium 3.4 mmol/L (3.3-5.1); Sodium 141 mmol/L (135-145)
== END 2024-11-21 09:35 | disposition home or self-care (01) ==
LOC: HO.LAB 09:34
PROVIDERS: PCP Internal Medicine Medical Oncology; Visit Provider Internal Medicine Medical Oncology
DX: E87.6 Hypokalemia (principal)
CPT/HCPCS: 36415; 80051